=== PATIENT | male | born 1975 | race Two or more races ===

== ENCOUNTER → 2016-11-28 | Outpatient (CLI) | payer OTHER, MEDICAID ==
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
--- NOTE | 2016-11-28 15:36 | MR ---
MRI of the Right Shoulder History: Shoulder pain. Technique: Axial proton density, oblique coronal, and sagittal T1 and T2 images were acquired. Findings: Supraspinatus tendon is intact with minimal bursal surface tendinosis. Infraspinatus is int act. Subscapularis and teres minor are intact. Long head biceps tendon is normally positioned and int act with mild tendinosis of the rotator interval. Minimal degenerative intrasubstance signal posterosuperior labrum without linear tear or detachment. The remainder of the labrum is normal in appearance. Articular cartilage of the glenohumeral joint is intact. The acromioclavicular joint is benign in features. Minimal downslope to the acromion. Impression: 1. Minimal bursal surface distal supraspinatus tendinosis. Intact rotator cuff. 2. Minimal degenerative intrasubstance signal posterosuperior labrum without linear tear or detachmen t. 3. Mild long head biceps tendinosis.
== END ==
LOC: FIMAGING 11:29
PROVIDERS: ATTEND Orthopaedic Surgery
DX: M25.511 Pain in right shoulder (principal); M51.16 Intervertebral disc disorders with radiculopathy, lumbar region

== ENCOUNTER 2017-01-07 12:31 | Day surgery (SDC) | payer OTHER, MEDICAID | END 2017-01-07 14:23 | disposition home or self-care (01) | LOC: FIMAGING 12:31 | PROVIDERS: ATTEND Orthopaedic Surgery | DX: M54.17 Radiculopathy, lumbosacral region (principal) ==

== ENCOUNTER → 2017-01-11 | Outpatient (CLI) | payer OTHER, MEDICAID | LOC: FIMAGING 18:17 | PROVIDERS: ATTEND Orthopaedic Surgery | DX: M47.892 Other spondylosis, cervical region (principal); M48.02 Spinal stenosis, cervical region; M25.78 Osteophyte, vertebrae ==

== ENCOUNTER → 2017-01-26 | Outpatient (CLI) | payer MEDICAID, OTHER | LOC: FIMAGING 11:14 | PROVIDERS: ATTEND Orthopaedic Surgery | DX: K76.9 Liver disease, unspecified (principal) ==

== ENCOUNTER → 2018-12-18 | Outpatient (CLI) | payer OTHER, MEDICAID | LOC: FIMAGING 19:40 | PROVIDERS: ATTEND Psychiatry & Neurology Neurology | DX: R51 Headache (principal); R20.2 Paresthesia of skin | CPT/HCPCS: 70551-PN ==